=== PATIENT | female | born 1935 | race Caucasian/White ===

== ENCOUNTER 2022-10-07 15:12 | Emergency (ER) | payer OTHER, MEDICARE ==
[~2022-10-07] VITALS: Ht 165.1 cm; Wt 74.8 kg
[2022-10-07] MEDS ORDERED: ATEN25 PO (15:29)
[2022-10-07] MEDS ORDERED: AMLODIPINE BESY10 MG PO (15:29)
[2022-10-07] MEDS ORDERED: CATAPRES0.1 MG PO (15:30)
[2022-10-07] MEDS ORDERED: DONEPEZIL HCL10 MG PO (15:30)
[2022-10-07] MEDS ORDERED: LATANOPROST2.5 M3 (15:31)
[2022-10-07] MEDS ORDERED: LISI20 PO (15:31)
[2022-10-07] MEDS ORDERED: SERT50 PO (15:32)
[2022-10-07] MEDS ORDERED: LOPE2C PO (15:32)
[2022-10-07] MEDS ORDERED: HYDR1TAB94 PO (18:46)
== END 2022-10-07 19:05 | disposition home or self-care (01) ==
LOC: ER 15:12
DX: S00.81XA Abrasion of other part of head, initial encounter (principal); M54.2 Cervicalgia; M25.512 Pain in left shoulder; M79.642 Pain in left hand; M79.605 Pain in left leg; W01.0XXA Fall on same level from slipping, tripping and stumbling without subsequent striking against object, initial encounter; Z79.899 Other long term (current) drug therapy; Z23 Encounter for immunization
CPT/HCPCS: 70450; 71046; 72125; 90714; A9270

== ENCOUNTER 2022-10-23 22:35 | Emergency (ER) | payer MEDICARE, OTHER ==
[~2022-10-23] VITALS: Ht 167.6 cm; Wt 81.7 kg
[~2022-10-23 22:35] MED LIST: AMLODIPINE BESY10 MG PO; AMOCLA875 PO; ATEN25 PO; AZIT250 PO; CATAPRES0.1 MG PO; DONEPEZIL HCL10 MG PO; HYDR1TAB94 PO; LATANOPROST2.5 M3; LISI20 PO; LOPE2C PO; SERT50 PO
[2022-10-24 06:04] LABS: Albumin, Blood 3.2 g/dL (3.4-5.0); Albumin/Globulin Ratio 0.8 (0.8-1.8); Bilirubin, Total 0.5 mg/dL (0.1-1.0); Bun/Creatinine Ratio 27.4 (12.0-20.0); Calcium, Blood 9.3 mg/dL (8.5-10.1); Creatine Kinase MB 1.4 ng/mL (0.0-3.6); Creatinine, Blood 1.06 mg/dL (0.40-1.00); Globulin, Blood 4.2 g/dL (2.2-4.0); Potassium, Blood 4.5 mmol/L (3.5-5.5); Total Protein, Blood 7.4 g/dL (6.4-8.2)
[2022-10-24 06:05] LABS: Creatine Kinase MB Index 2.5 (0.0-4.0)
[2022-10-24 07:39] LABS: BASOPHILS ABSOLUTE AUTO 0.07 K/mm3 (0.00-0.23); BASOPHILS PERCENT AUTO 1 % (0-2); EOSINOPHILS ABSOLUTE AUTO 0.18 K/mm3 (0.00-0.68); EOSINOPHILS PERCENT AUTO 2 % (0-6); Hematocrit 41.9 % (33.0-51.0); Hemoglobin 13.8 g/dL (11.5-16.0); IMMATURE GRAN ABSOLUTE AUTO 0.02 K/mm3 (0.00-0.10); IMMATURE GRAN PERCENT AUTO 0 % (0-1); LYMPHOCYTES ABSOLUTE AUTO 1.68 K/mm3 (0.84-5.20); LYMPHOCYTES PERCENT AUTO 21 % (21-46); MONOCYTES ABSOLUTE AUTO 1.05 K/mm3 (0.16-1.47); MONOCYTES PERCENT AUTO 13 % (4-13); Mean Corpuscular HGB 27.9 pg (26.0-34.0); Mean Corpuscular HGB Conc 32.9 g/dL (31.5-36.5); Mean Corpuscular Volume 85 fL (80-100); NEUTROPHILS ABSOLUTE AUTO 5.02 K/mm3 (1.96-9.15); NEUTROPHILS PERCENT AUTO 63 % (41-73); Platelet Count 272 K/mm3 (150-400); RDW Coefficient Variation 14.8 % (11.7-14.2); RDW Standard Deviation 45.7 fL (35.1-46.3); Red Blood Cell Count 4.94 M/mm3 (3.80-5.20); White Blood Cell Count 8.02 K/mm3 (4.00-11.30)
[2022-10-24 07:40] LABS: Mean Platelet Volume 9.8 fL (9.1-12.4)
== END 2022-10-24 05:11 | disposition home or self-care (01) ==
LOC: ER 22:35
PROVIDERS: Student in an Organized Health Care Education/Training Program
DX: S09.90XA Unspecified injury of head, initial encounter (principal); M25.511 Pain in right shoulder; M25.551 Pain in right hip; M54.2 Cervicalgia; I10 Essential (primary) hypertension; Z79.899 Other long term (current) drug therapy; W01.0XXA Fall on same level from slipping, tripping and stumbling without subsequent striking against object, initial encounter
CPT/HCPCS: 70450; 72125; 72192; 73030; 73502; 73562-RT; 80053; 82550; 82553; 85025; A9270

== ENCOUNTER 2022-10-29 08:54 | Emergency (ER) | payer MEDICARE, OTHER ==
[~2022-10-29] VITALS: Ht 167.6 cm; Wt 90.7 kg
[2022-10-29 09:57] LABS: Bun/Creatinine Ratio 27.1 (12.0-20.0); Calcium, Blood 9.1 mg/dL (8.5-10.1); Creatinine, Blood 1.07 mg/dL (0.40-1.00); Potassium, Blood 4.1 mmol/L (3.5-5.5)
[2022-10-29 10:43] LABS: BASOPHILS ABSOLUTE AUTO 0.05 K/mm3 (0.00-0.23); BASOPHILS PERCENT AUTO 1 % (0-2); EOSINOPHILS ABSOLUTE AUTO 0.07 K/mm3 (0.00-0.68); EOSINOPHILS PERCENT AUTO 1 % (0-6); Hematocrit 35.7 % (33.0-51.0); Hemoglobin 11.5 g/dL (11.5-16.0); IMMATURE GRAN ABSOLUTE AUTO 0.01 K/mm3 (0.00-0.10); IMMATURE GRAN PERCENT AUTO 0 % (0-1); LYMPHOCYTES ABSOLUTE AUTO 1.04 K/mm3 (0.84-5.20); LYMPHOCYTES PERCENT AUTO 18 % (21-46); MONOCYTES ABSOLUTE AUTO 0.73 K/mm3 (0.16-1.47); MONOCYTES PERCENT AUTO 13 % (4-13); Mean Corpuscular HGB 28.1 pg (26.0-34.0); Mean Corpuscular HGB Conc 32.2 g/dL (31.5-36.5); Mean Corpuscular Volume 87 fL (80-100); NEUTROPHILS ABSOLUTE AUTO 3.77 K/mm3 (1.96-9.15); NEUTROPHILS PERCENT AUTO 67 % (41-73); Platelet Count 250 K/mm3 (150-400); RDW Coefficient Variation 14.8 % (11.7-14.2); RDW Standard Deviation 47.6 fL (35.1-46.3); Red Blood Cell Count 4.09 M/mm3 (3.80-5.20); White Blood Cell Count 5.67 K/mm3 (4.00-11.30)
[2022-10-29] MEDS ORDERED: ACET325 PO (10:46)
== END 2022-10-29 12:19 | disposition home or self-care (01) ==
LOC: ER 08:54
PROVIDERS: Student in an Organized Health Care Education/Training Program
DX: S22.41XA Multiple fractures of ribs, right side, initial encounter for closed fracture (principal); S40.021A Contusion of right upper arm, initial encounter; S70.01XA Contusion of right hip, initial encounter; S70.11XA Contusion of right thigh, initial encounter; S16.1XXA Strain of muscle, fascia and tendon at neck level, initial encounter; R51.9 Headache, unspecified; I10 Essential (primary) hypertension; E11.40 Type 2 diabetes mellitus with diabetic neuropathy, unspecified; W06.XXXA Fall from bed, initial encounter; Z79.899 Other long term (current) drug therapy
CPT/HCPCS: 36415; 70450; 71260; 72125; 73060; 74177; 80048; 85025; A9270; J1885; Q9967

== ENCOUNTER 2022-12-18 20:33 | Emergency (ER) | payer MEDICARE, OTHER ==
[~2022-12-18] VITALS: Ht 167.6 cm; Wt 72.6 kg
[~2022-12-18 20:33] MED LIST changes: +ACET325 PO
[2022-12-18] MEDS ORDERED: CYCL10 PO (23:16)
== END 2022-12-19 00:26 | disposition home or self-care (01) ==
LOC: ER 20:33
DX: M54.2 Cervicalgia (principal); R51.9 Headache, unspecified; M25.521 Pain in right elbow; M25.562 Pain in left knee; M25.561 Pain in right knee; I10 Essential (primary) hypertension; F03.90 Unspecified dementia, unspecified severity, without behavioral disturbance, psychotic disturbance, mood disturbance, and anxiety; W01.190A Fall on same level from slipping, tripping and stumbling with subsequent striking against furniture, initial encounter; Z79.899 Other long term (current) drug therapy
CPT/HCPCS: 70450; 72125; 73070; 73560-LT; 73560-RT; 93005; 93010; 96372; 99285-25; A9270; J1885

== ENCOUNTER 2022-12-24 18:57 | Emergency (ER) | payer OTHER, MEDICARE ==
[~2022-12-24] VITALS: Ht 165.1 cm; Wt 72.6 kg
[~2022-12-24 18:57] MED LIST changes: +CYCL10 PO
[2022-12-24 20:41] LABS: BASOPHILS ABSOLUTE AUTO 0.04 K/mm3 (0.00-0.23); BASOPHILS PERCENT AUTO 1 % (0-2); EOSINOPHILS ABSOLUTE AUTO 0.03 K/mm3 (0.00-0.68); EOSINOPHILS PERCENT AUTO 0 % (0-6); Hematocrit 41.7 % (33.0-51.0); Hemoglobin 13.5 g/dL (11.5-16.0); IMMATURE GRAN ABSOLUTE AUTO 0.03 K/mm3 (0.00-0.10); IMMATURE GRAN PERCENT AUTO 0 % (0-1); LYMPHOCYTES ABSOLUTE AUTO 0.83 K/mm3 (0.84-5.20); LYMPHOCYTES PERCENT AUTO 10 % (21-46); MONOCYTES ABSOLUTE AUTO 0.96 K/mm3 (0.16-1.47); MONOCYTES PERCENT AUTO 11 % (4-13); Mean Corpuscular HGB 27.5 pg (26.0-34.0); Mean Corpuscular HGB Conc 32.4 g/dL (31.5-36.5); Mean Corpuscular Volume 85 fL (80-100); Mean Platelet Volume 10.4 fL (9.1-12.4); NEUTROPHILS ABSOLUTE AUTO 6.72 K/mm3 (1.96-9.15); NEUTROPHILS PERCENT AUTO 78 % (41-73); Platelet Count 255 K/mm3 (150-400); RDW Coefficient Variation 15.1 % (11.7-14.2); RDW Standard Deviation 46.7 fL (35.1-46.3); Red Blood Cell Count 4.91 M/mm3 (3.80-5.20); White Blood Cell Count 8.61 K/mm3 (4.00-11.30)
[2022-12-24 21:33] LABS: Source, Urine Clean Catch
[2022-12-24 21:53] LABS: Albumin, Blood 3.2 g/dL (3.4-5.0); Albumin/Globulin Ratio 0.9 (0.8-1.8); Bilirubin, Total 0.7 mg/dL (0.1-1.0); Bun/Creatinine Ratio 25.8 (12.0-20.0); Calcium, Blood 8.8 mg/dL (8.5-10.1); Creatinine, Blood 0.93 mg/dL (0.40-1.00); Globulin, Blood 3.4 g/dL (2.2-4.0); Potassium, Blood 3.8 mmol/L (3.5-5.5); Total Protein, Blood 6.6 g/dL (6.4-8.2)
[2022-12-24 22:02] LABS: Appearance, Urine Clear (Clear); Bilirubin, Urine Neg (Neg); Blood, Urine Neg (Neg); Color, Urine Yellow (P-Yellow); Glucose Qualitative, Urine Neg (Neg); Ketones, Urine 2+ (Neg); Leukocyte Esterase, Urine Neg (Neg); Nitrite, Urine Neg (Neg); Protein, Urine 3+ (Neg); Urobilinogen, Urine NORM (Normal)
[2022-12-24 22:23] LABS: Bacteria Few /hpf; Granular Casts 0-2 /lpf (0); Hyaline Casts 0-2 /lpf (0-2); Red Blood Cells, Urine 0-2 /hpf (0-2); Squamous Epithelial Cells Few /hpf (Few); White Blood Cells, Urine 0-2 /hpf (0-5)
== END 2022-12-24 22:45 | disposition home or self-care (01) ==
LOC: ER 18:57
PROVIDERS: Emergency Medicine
DX: S51.012A Laceration without foreign body of left elbow, initial encounter (principal); T14.8XXA Other injury of unspecified body region, initial encounter; W01.190A Fall on same level from slipping, tripping and stumbling with subsequent striking against furniture, initial encounter; E86.0 Dehydration; I10 Essential (primary) hypertension; Z79.899 Other long term (current) drug therapy
CPT/HCPCS: 70450; 72125; 72170; 73080; 80053; 81001; 85025; A9270; J1885; J7030

== ENCOUNTER 2022-12-26 00:30 | Emergency (ER) | payer MEDICARE, OTHER ==
[~2022-12-26] VITALS: Ht 167.6 cm; Wt 63.5 kg
[2022-12-26] MEDS ORDERED: HYDROCODONE-AC1 EA10 PO (00:54)
[2022-12-26 02:17] LABS: BASOPHILS ABSOLUTE AUTO 0.05 K/mm3 (0.00-0.23); BASOPHILS PERCENT AUTO 1 % (0-2); EOSINOPHILS ABSOLUTE AUTO 0.09 K/mm3 (0.00-0.68); EOSINOPHILS PERCENT AUTO 1 % (0-6); Hematocrit 38.5 % (33.0-51.0); Hemoglobin 12.5 g/dL (11.5-16.0); IMMATURE GRAN ABSOLUTE AUTO 0.03 K/mm3 (0.00-0.10); IMMATURE GRAN PERCENT AUTO 0 % (0-1); LYMPHOCYTES PERCENT AUTO 10 % (21-46); MONOCYTES ABSOLUTE AUTO 1.04 K/mm3 (0.16-1.47); MONOCYTES PERCENT AUTO 13 % (4-13); Mean Corpuscular HGB 27.8 pg (26.0-34.0); Mean Corpuscular HGB Conc 32.5 g/dL (31.5-36.5); Mean Corpuscular Volume 86 fL (80-100); Mean Platelet Volume 9.5 fL (9.1-12.4); NEUTROPHILS ABSOLUTE AUTO 6.04 K/mm3 (1.96-9.15); NEUTROPHILS PERCENT AUTO 75 % (41-73); Platelet Count 242 K/mm3 (150-400); RDW Standard Deviation 47.1 fL (35.1-46.3); White Blood Cell Count 8.05 K/mm3 (4.00-11.30)
[2022-12-26 02:45] LABS: Albumin, Blood 3.1 g/dL (3.4-5.0); Albumin/Globulin Ratio 0.8 (0.8-1.8); Bilirubin, Total 0.8 mg/dL (0.1-1.0); Bun/Creatinine Ratio 25.7 (12.0-20.0); Creatinine, Blood 1.01 mg/dL (0.40-1.00); Globulin, Blood 3.7 g/dL (2.2-4.0); Potassium, Blood 3.8 mmol/L (3.5-5.5); Thyroid Stimulating Hormone 8.26 uIU/mL (0.360-4.800); Total Protein, Blood 6.8 g/dL (6.4-8.2)
[2022-12-26 03:17] LABS: Source, Urine Straight Cath
[2022-12-26 03:32] LABS: Appearance, Urine Hazy (Clear); Bilirubin, Urine Neg (Neg); Blood, Urine Neg (Neg); Color, Urine Yellow (P-Yellow); Glucose Qualitative, Urine Neg (Neg); Ketones, Urine 2+ (Neg); Leukocyte Esterase, Urine Neg (Neg); Nitrite, Urine Neg (Neg); Protein, Urine 3+ (Neg); Urobilinogen, Urine NORM (Normal)
[2022-12-26 03:55] LABS: Amorphous Mod (0-Heavy); Bacteria Few /hpf; Hyaline Casts 0-2 /lpf (0-2); Mucus Light (0-Heavy); Red Blood Cells, Urine 0-2 /hpf (0-2); Squamous Epithelial Cells Rare /hpf (Few); White Blood Cells, Urine 0-2 /hpf (0-5)
[2022-12-26 06:22] LABS: Free Thyroxine 1.14 ng/dL (0.70-1.60)
== END 2022-12-26 07:45 | disposition home or self-care (01) ==
LOC: ER 00:30
PROVIDERS: Student in an Organized Health Care Education/Training Program
DX: M79.601 Pain in right arm (principal); R41.0 Disorientation, unspecified; I10 Essential (primary) hypertension; W19.XXXA Unspecified fall, initial encounter; Z91.011 Allergy to milk products; Z79.899 Other long term (current) drug therapy
CPT/HCPCS: 36415; 70450; 71045; 72125; 72170; 73060; 80053; 81001; 83735; 84439; 84443; 85025; 99285-25; A9270; P9612

== ENCOUNTER → 2023-02-26 | Outpatient (CLI) | payer MEDICARE, OTHER ==
[~2023-02-26] MED LIST changes: +HYDROCODONE-AC1 EA10 PO
[2023-02-27 10:00] LABS: Source, Urine Voided
[2023-02-27 10:56] LABS: Appearance, Urine Clear (Clear); Bilirubin, Urine Neg (Neg); Blood, Urine 1+ (Neg); Color, Urine Yellow (P-Yellow); Glucose Qualitative, Urine Neg (Neg); Ketones, Urine Neg (Neg); Leukocyte Esterase, Urine 3+ (Neg); Nitrite, Urine Neg (Neg); Protein, Urine 3+ (Neg); Urobilinogen, Urine NORM (Normal)
[2023-02-27 11:12] LABS: Bacteria Mod /hpf; Squamous Epithelial Cells Few /hpf (Few); White Blood Cells, Urine TNTC /hpf (0-5)
== END | disposition home or self-care (01) ==
LOC: LAB SHORT 10:15
PROVIDERS: Physician Assistant
DX: N39.0 Urinary tract infection, site not specified (principal)
CPT/HCPCS: 81001; 87086

== ENCOUNTER 2023-03-09 03:10 | Emergency (ER) | payer MEDICARE, OTHER ==
[~2023-03-09] VITALS: Ht 167.6 cm; Wt 61.2 kg
[2023-03-09 04:03] LABS: BASOPHILS ABSOLUTE AUTO 0.05 K/mm3 (0.00-0.23); BASOPHILS PERCENT AUTO 1 % (0-2); EOSINOPHILS ABSOLUTE AUTO 0.09 K/mm3 (0.00-0.68); EOSINOPHILS PERCENT AUTO 1 % (0-6); Hematocrit 43.6 % (33.0-51.0); Hemoglobin 14.2 g/dL (11.5-16.0); IMMATURE GRAN ABSOLUTE AUTO 0.03 K/mm3 (0.00-0.10); IMMATURE GRAN PERCENT AUTO 0 % (0-1); LYMPHOCYTES ABSOLUTE AUTO 1.01 K/mm3 (0.84-5.20); LYMPHOCYTES PERCENT AUTO 11 % (21-46); MONOCYTES ABSOLUTE AUTO 0.89 K/mm3 (0.16-1.47); MONOCYTES PERCENT AUTO 10 % (4-13); Mean Corpuscular HGB 27.6 pg (26.0-34.0); Mean Corpuscular HGB Conc 32.6 g/dL (31.5-36.5); Mean Corpuscular Volume 85 fL (80-100); Mean Platelet Volume 9.6 fL (9.1-12.4); NEUTROPHILS ABSOLUTE AUTO 7.25 K/mm3 (1.96-9.15); NEUTROPHILS PERCENT AUTO 78 % (41-73); Platelet Count 273 K/mm3 (150-400); RDW Coefficient Variation 14.5 % (11.7-14.2); RDW Standard Deviation 44.4 fL (35.1-46.3); Red Blood Cell Count 5.14 M/mm3 (3.80-5.20); White Blood Cell Count 9.32 K/mm3 (4.00-11.30)
[2023-03-09 04:14] LABS: Albumin, Blood 3.4 g/dL (3.4-5.0); Albumin/Globulin Ratio 0.8 (0.8-1.8); Bilirubin, Total 0.4 mg/dL (0.1-1.0); Bun/Creatinine Ratio 31.1 (12.0-20.0); Calcium, Blood 9.4 mg/dL (8.5-10.1); Creatinine, Blood 1.03 mg/dL (0.40-1.00); Globulin, Blood 4.5 g/dL (2.2-4.0); Total Protein, Blood 7.9 g/dL (6.4-8.2)
[2023-03-09 04:46] LABS: Source, Urine Straight Cath
[2023-03-09 04:49] LABS: Bilirubin, Urine Neg (Neg); Blood, Urine Neg (Neg); Glucose Qualitative, Urine Neg (Neg); Ketones, Urine Neg (Neg); Leukocyte Esterase, Urine Neg (Neg); Nitrite, Urine Neg (Neg); Protein, Urine 2+ (Neg); Specific Gravity, Urine 1.015 (1.003-1.022); Urobilinogen, Urine NORM (Normal)
[2023-03-09 05:04] LABS: Color, Urine Yellow (P-Yellow)
[2023-03-09 05:05] LABS: Amorphous Heavy (0-Heavy); Appearance, Urine Hazy (Clear); Bacteria Rare /hpf; Red Blood Cells, Urine Not Seen /hpf (0-2); Squamous Epithelial Cells Rare /hpf (Few); White Blood Cells, Urine Not Seen /hpf (0-5)
[2023-03-09 08:00] VITALS: BP 146/88
== END 2023-03-09 08:27 | disposition home or self-care (01) ==
LOC: ER 03:10
PROVIDERS: Student in an Organized Health Care Education/Training Program
DX: Z04.3 Encounter for examination and observation following other accident (principal); Z88.8 Allergy status to other drugs, medicaments and biological substances; Z79.899 Other long term (current) drug therapy; I10 Essential (primary) hypertension; E03.9 Hypothyroidism, unspecified; E11.9 Type 2 diabetes mellitus without complications; E78.5 Hyperlipidemia, unspecified
CPT/HCPCS: 36415; 51701; 80053; 81001; 85025; 93005; 93010; 99283-25

== ENCOUNTER → 2023-04-03 | Outpatient (CLI) | payer MEDICARE, OTHER ==
[~2023-04-03] MED LIST changes: +BISA10S; +DULCOLAX400 MG/5 M PO; +MIRALAX17 GM; +PSYSENPA; +QUET25; +SENN187; +TIMDOROPSO
[2023-04-03 13:39] LABS: Bilirubin, Urine Neg (Neg); Blood, Urine 2+ (Neg); Glucose Qualitative, Urine Neg (Neg); Ketones, Urine Neg (Neg); Leukocyte Esterase, Urine 2+ (Neg); Nitrite, Urine Neg (Neg); Protein, Urine 3+ (Neg); Urobilinogen, Urine NORM (Normal)
[2023-04-03 13:50] LABS: Appearance, Urine Clear (Clear); Color, Urine Yellow (P-Yellow)
[2023-04-03 13:51] LABS: Bacteria Many /hpf; Mucus Mod (0-Heavy); Squamous Epithelial Cells Few /hpf (Few)
== END ==
LOC: LAB 11:00 → LAB SHORT 11:00
PROVIDERS: Physician Assistant
DX: N39.0 Urinary tract infection, site not specified (principal)
CPT/HCPCS: 81001; 87077; 87086; 87186

== ENCOUNTER 2023-06-14 12:03 | Emergency (ER) | payer MEDICARE, OTHER ==
[~2023-06-14] VITALS: Ht 167.6 cm; Wt 65.8 kg
[2023-06-14 12:59] LABS: BASOPHILS ABSOLUTE AUTO 0.03 K/mm3 (0.00-0.23); BASOPHILS PERCENT AUTO 1 % (0-2); EOSINOPHILS ABSOLUTE AUTO 0.16 K/mm3 (0.00-0.68); EOSINOPHILS PERCENT AUTO 3 % (0-6); Hematocrit 42.4 % (33.0-51.0); Hemoglobin 14.1 g/dL (11.5-16.0); IMMATURE GRAN ABSOLUTE AUTO 0.01 K/mm3 (0.00-0.10); IMMATURE GRAN PERCENT AUTO 0 % (0-1); LYMPHOCYTES ABSOLUTE AUTO 1.26 K/mm3 (0.84-5.20); LYMPHOCYTES PERCENT AUTO 21 % (21-46); MONOCYTES ABSOLUTE AUTO 0.78 K/mm3 (0.16-1.47); MONOCYTES PERCENT AUTO 13 % (4-13); Mean Corpuscular HGB 28.5 pg (26.0-34.0); Mean Corpuscular HGB Conc 33.3 g/dL (31.5-36.5); Mean Corpuscular Volume 86 fL (80-100); Mean Platelet Volume 9.8 fL (9.1-12.4); NEUTROPHILS ABSOLUTE AUTO 3.76 K/mm3 (1.96-9.15); NEUTROPHILS PERCENT AUTO 63 % (41-73); Platelet Count 242 K/mm3 (150-400); RDW Coefficient Variation 14.6 % (11.7-14.2); RDW Standard Deviation 46.4 fL (35.1-46.3); Red Blood Cell Count 4.94 M/mm3 (3.80-5.20)
[2023-06-14 13:17] LABS: Albumin, Blood 3.4 g/dL (3.4-5.0); Albumin/Globulin Ratio 0.9 (0.8-1.8); Bilirubin, Total 0.4 mg/dL (0.1-1.0); Bun/Creatinine Ratio 23.3 (12.0-20.0); Calcium, Blood 8.7 mg/dL (8.5-10.1); Creatinine, Blood 1.16 mg/dL (0.40-1.00); Globulin, Blood 3.9 g/dL (2.2-4.0); Total Protein, Blood 7.3 g/dL (6.4-8.2)
[2023-06-14 14:12] VITALS: BP 154/58
== END 2023-06-14 14:12 | disposition home or self-care (01) ==
LOC: ER 12:03
PROVIDERS: Family Medicine
DX: M71.21 Synovial cyst of popliteal space [Baker], right knee (principal); R60.0 Localized edema; Z88.8 Allergy status to other drugs, medicaments and biological substances; Z79.1 Long term (current) use of non-steroidal anti-inflammatories (NSAID); Z79.818 Long term (current) use of other agents affecting estrogen receptors and estrogen levels; Z79.899 Other long term (current) drug therapy; E11.9 Type 2 diabetes mellitus without complications; E78.5 Hyperlipidemia, unspecified; I10 Essential (primary) hypertension; E03.9 Hypothyroidism, unspecified
CPT/HCPCS: 80053; 85025; 93971; 99284-25

== ENCOUNTER 2023-06-15 14:53 | Emergency (ER) | payer MEDICARE, OTHER ==
[~2023-06-15] VITALS: Ht 167.6 cm; Wt 65.8 kg
[2023-06-15 14:53] VITALS: BP 144/67
== END 2023-06-15 17:12 | disposition home or self-care (01) ==
LOC: ER 14:53
DX: S09.90XA Unspecified injury of head, initial encounter (principal); S51.012A Laceration without foreign body of left elbow, initial encounter; W18.30XA Fall on same level, unspecified, initial encounter; Y92.002 Bathroom of unspecified non-institutional (private) residence as the place of occurrence of the external cause; Z88.8 Allergy status to other drugs, medicaments and biological substances; Z79.899 Other long term (current) drug therapy; I10 Essential (primary) hypertension; E11.9 Type 2 diabetes mellitus without complications; E03.9 Hypothyroidism, unspecified; E78.5 Hyperlipidemia, unspecified
CPT/HCPCS: 70450; 99283-25

== ENCOUNTER 2023-07-04 11:49 | Emergency (ER) | payer OTHER, MEDICARE ==
[~2023-07-04] VITALS: Ht 167.6 cm; Wt 65.8 kg
[~2023-07-04 11:49] MED LIST changes: -QUET25; +QUET25 PO
[2023-07-04] MEDS ORDERED: ACET500 PO (14:38)
[2023-07-04 15:15] VITALS: BP 171/91
== END 2023-07-04 15:30 ==
LOC: ER 11:49
DX: M25.511 Pain in right shoulder (principal); W01.0XXA Fall on same level from slipping, tripping and stumbling without subsequent striking against object, initial encounter; Z88.8 Allergy status to other drugs, medicaments and biological substances; Z79.899 Other long term (current) drug therapy; I10 Essential (primary) hypertension; E78.5 Hyperlipidemia, unspecified; E11.9 Type 2 diabetes mellitus without complications; E03.9 Hypothyroidism, unspecified
CPT/HCPCS: 70450; 73030; 73502; 93005; 93010; A9270

== ENCOUNTER 2023-07-04 23:29 | Emergency (ER) | payer MEDICARE, OTHER ==
[~2023-07-04] VITALS: Ht 167.6 cm; Wt 77.1 kg
[~2023-07-04 23:29] MED LIST changes: +ACET500 PO
[2023-07-04 23:36] VITALS: BP 166/70
== END 2023-07-05 02:30 | disposition home or self-care (01) ==
LOC: ER 23:29
DX: S16.1XXA Strain of muscle, fascia and tendon at neck level, initial encounter (principal); S00.83XA Contusion of other part of head, initial encounter; S70.01XA Contusion of right hip, initial encounter; S80.01XA Contusion of right knee, initial encounter; S80.11XA Contusion of right lower leg, initial encounter; I10 Essential (primary) hypertension; G30.9 Alzheimer's disease, unspecified; F02.80 Dementia in other diseases classified elsewhere, unspecified severity, without behavioral disturbance, psychotic disturbance, mood disturbance, and anxiety; E11.9 Type 2 diabetes mellitus without complications; E03.9 Hypothyroidism, unspecified; E78.5 Hyperlipidemia, unspecified; Z91.011 Allergy to milk products; Z79.899 Other long term (current) drug therapy; W18.30XA Fall on same level, unspecified, initial encounter
CPT/HCPCS: 70450; 72125; 73502; 73562-RT; 99285-25

== ENCOUNTER → 2023-07-08 | Outpatient (CLI) | payer MEDICARE, OTHER ==
[2023-07-08 17:35] LABS: Appearance, Urine Hazy (Clear); Bilirubin, Urine Neg (Neg); Blood, Urine 3+ (Neg); Color, Urine Yellow (P-Yellow); Glucose Qualitative, Urine Neg (Neg); Ketones, Urine Neg (Neg); Leukocyte Esterase, Urine 2+ (Neg); Nitrite, Urine Neg (Neg); Protein, Urine 3+ (Neg); Urobilinogen, Urine NORM (Normal)
[2023-07-08 18:00] LABS: Bacteria Mod /hpf; Squamous Epithelial Cells Few /hpf (Few)
== END ==
LOC: LAB SHORT 15:40 → LAB 15:40
PROVIDERS: Physician Assistant
DX: N39.0 Urinary tract infection, site not specified (principal)
CPT/HCPCS: 81001; 87086

== ENCOUNTER → 2023-10-07 | Outpatient (CLI) | payer MEDICARE, OTHER ==
[~2023-10-07] MED LIST changes: +CEPH500 PO
[2023-10-07 12:53] LABS: Bilirubin, Urine Neg (Neg); Blood, Urine 3+ (Neg); Glucose Qualitative, Urine Neg (Neg); Ketones, Urine Neg (Neg); Leukocyte Esterase, Urine 3+ (Neg); Nitrite, Urine Neg (Neg); Protein, Urine 3+ (Neg); Urobilinogen, Urine NORM (Normal)
[2023-10-07 13:22] LABS: Appearance, Urine Hazy (Clear); Bacteria Few /hpf; Color, Urine Yellow (P-Yellow); Squamous Epithelial Cells Few /hpf (Few)
== END ==
LOC: LAB SHORT 02:30 → LAB 02:30
PROVIDERS: Physician Assistant
DX: N39.0 Urinary tract infection, site not specified (principal)
CPT/HCPCS: 81001; 87077; 87086; 87186

== ENCOUNTER → 2023-12-09 | Outpatient (CLI) | payer MEDICARE, OTHER ==
[2023-12-09 17:59] LABS: Appearance, Urine Hazy (Clear); Bilirubin, Urine Neg (Neg); Blood, Urine Neg (Neg); Color, Urine Yellow (P-Yellow); Glucose Qualitative, Urine Neg (Neg); Ketones, Urine Neg (Neg); Leukocyte Esterase, Urine 2+ (Neg); Nitrite, Urine Neg (Neg); Protein, Urine 2+ (Neg); Specific Gravity, Urine 1.015 (1.003-1.022); Urobilinogen, Urine 1+ (Normal); pH, Urine 6.5 (5.0-8.0)
[2023-12-09 18:12] LABS: Bacteria Few /hpf; Red Blood Cells, Urine 0-2 /hpf (0-2); Squamous Epithelial Cells Few /hpf (Few); Transitional Epithelial Cells Rare /hpf (0-Rare)
== END ==
LOC: LAB SHORT 15:00 → LAB 15:00
PROVIDERS: Physician Assistant
DX: N39.0 Urinary tract infection, site not specified (principal)
CPT/HCPCS: 81001; 87077; 87086; 87186

== ENCOUNTER → 2024-01-08 | Outpatient (CLI) | payer MEDICARE, OTHER ==
[2024-01-08 17:37] LABS: Appearance, Urine Clear (Clear); Bilirubin, Urine Neg (Neg); Blood, Urine Neg (Neg); Color, Urine Yellow (P-Yellow); Glucose Qualitative, Urine Neg (Neg); Ketones, Urine Neg (Neg); Leukocyte Esterase, Urine 2+ (Neg); Nitrite, Urine Neg (Neg); Protein, Urine 2+ (Neg); Specific Gravity, Urine 1.015 (1.003-1.022); Urobilinogen, Urine NORM (Normal)
[2024-01-08 17:46] LABS: Bacteria Few /hpf; Red Blood Cells, Urine 0-2 /hpf (0-2); Squamous Epithelial Cells Few /hpf (Few); Transitional Epithelial Cells Few /hpf (0-Rare)
== END | disposition home or self-care (01) ==
LOC: LAB SHORT 15:10
PROVIDERS: Physician Assistant
DX: N39.0 Urinary tract infection, site not specified (principal)
CPT/HCPCS: 81001; 87086

== ENCOUNTER → 2024-02-19 | Outpatient (CLI) | payer MEDICARE, OTHER ==
[2024-02-20 17:37] LABS: Appearance, Urine Cloudy (Clear); Bilirubin, Urine Neg (Neg); Blood, Urine 1+ (Neg); Color, Urine Yellow (P-Yellow); Glucose Qualitative, Urine Neg (Neg); Ketones, Urine Neg (Neg); Leukocyte Esterase, Urine 3+ (Neg); Nitrite, Urine Neg (Neg); Protein, Urine 2+ (Neg); Urobilinogen, Urine NORM (Normal)
[2024-02-20 17:53] LABS: White Blood Cells, Urine TNTC /hpf (0-5)
[2024-02-20 17:54] LABS: Bacteria Many /hpf; Squamous Epithelial Cells Few /hpf (Few); Transitional Epithelial Cells Few /hpf (0-Rare)
== END ==
LOC: LAB 18:00 → LAB SHORT 18:00
PROVIDERS: Physician Assistant
DX: N39.0 Urinary tract infection, site not specified (principal)
CPT/HCPCS: 81001; 87077; 87086; 87186

== ENCOUNTER → 2024-03-11 | Outpatient (CLI) | payer MEDICARE, OTHER | END | disposition home or self-care (01) | LOC: LAB SHORT 18:18 → LAB 18:18 | DX: N39.0 Urinary tract infection, site not specified (principal) ==

== ENCOUNTER 2024-05-11 19:15 | Emergency (ER) | payer OTHER, MEDICARE ==
[~2024-05-11] VITALS: Ht 167.6 cm; Wt 74.8 kg
[2024-05-11 22:48] VITALS: BP 145/62
== END 2024-05-11 22:49 | disposition home or self-care (01) ==
LOC: ER 19:15
DX: S16.1XXA Strain of muscle, fascia and tendon at neck level, initial encounter (principal); S09.90XA Unspecified injury of head, initial encounter; W01.0XXA Fall on same level from slipping, tripping and stumbling without subsequent striking against object, initial encounter; I10 Essential (primary) hypertension; G30.9 Alzheimer's disease, unspecified; F02.80 Dementia in other diseases classified elsewhere, unspecified severity, without behavioral disturbance, psychotic disturbance, mood disturbance, and anxiety; E03.9 Hypothyroidism, unspecified; E11.9 Type 2 diabetes mellitus without complications; E78.5 Hyperlipidemia, unspecified; F32.9 Major depressive disorder, single episode, unspecified; Z91.011 Allergy to milk products; Z79.899 Other long term (current) drug therapy
CPT/HCPCS: 70450; 99284-25

== ENCOUNTER → 2024-06-01 | Outpatient (CLI) | payer MEDICARE, OTHER ==
[2024-06-02 16:18] LABS: Source, Urine Voided
[2024-06-02 17:01] LABS: Appearance, Urine Clear (Clear); Bilirubin, Urine Neg (Neg); Blood, Urine Neg (Neg); Color, Urine Yellow (P-Yellow); Glucose Qualitative, Urine Neg (Neg); Ketones, Urine Neg (Neg); Leukocyte Esterase, Urine 2+ (Neg); Nitrite, Urine Neg (Neg); Protein, Urine 2+ (Neg); Urobilinogen, Urine NORM (Normal)
[2024-06-02 17:17] LABS: Amorphous Light (0-Heavy); Bacteria Few /hpf; Hyaline Casts 0-2 /lpf (0-2); Red Blood Cells, Urine 0-2 /hpf (0-2); Squamous Epithelial Cells Few /hpf (Few)
== END ==
LOC: LAB 15:10 → LAB SHORT 15:10
PROVIDERS: Physician Assistant
DX: N39.0 Urinary tract infection, site not specified (principal)
CPT/HCPCS: 81001; 87086

== ENCOUNTER 2024-06-08 16:13 | Emergency (ER) | payer OTHER, MEDICARE ==
[~2024-06-08] VITALS: Ht 167.6 cm; Wt 72.6 kg
[2024-06-08] MEDS ORDERED: FentaNYL Citrate 50 MCG/ML 2 ML Injection IV PRN (17:45)
[2024-06-08 18:25] LABS: BASOPHILS ABSOLUTE AUTO 0.07 K/mm3 (0.00-0.23); BASOPHILS PERCENT AUTO 1 % (0-2); EOSINOPHILS ABSOLUTE AUTO 0.38 K/mm3 (0.00-0.68); EOSINOPHILS PERCENT AUTO 6 % (0-6); Hematocrit 44.1 % (33.0-51.0); Hemoglobin 14.6 g/dL (11.5-16.0); IMMATURE GRAN PERCENT AUTO 0 % (0-1); LYMPHOCYTES ABSOLUTE AUTO 1.46 K/mm3 (0.84-5.20); LYMPHOCYTES PERCENT AUTO 22 % (21-46); MONOCYTES PERCENT AUTO 14 % (4-13); Mean Corpuscular HGB 28.6 pg (26.0-34.0); Mean Corpuscular HGB Conc 33.1 g/dL (31.5-36.5); Mean Corpuscular Volume 87 fL (80-100); Mean Platelet Volume 9.4 fL (9.1-12.4); NEUTROPHILS ABSOLUTE AUTO 3.76 K/mm3 (1.96-9.15); NEUTROPHILS PERCENT AUTO 57 % (41-73); Platelet Count 221 K/mm3 (150-400); RDW Coefficient Variation 13.8 % (11.7-14.2); White Blood Cell Count 6.57 K/mm3 (4.00-11.30)
[2024-06-08 18:51] LABS: Albumin, Blood 3.4 g/dL (3.4-5.0); Albumin/Globulin Ratio 0.8 (0.8-1.8); Bilirubin, Total 0.5 mg/dL (0.1-1.0); Bun/Creatinine Ratio 22.2 (12.0-20.0); Creatinine, Blood 1.17 mg/dL (0.40-1.00); Globulin, Blood 4.2 g/dL (2.2-4.0); Potassium, Blood 4.3 mmol/L (3.5-5.5); Total Protein, Blood 7.6 g/dL (6.4-8.2)
[2024-06-08 23:03] VITALS: BP 209/77
== END 2024-06-08 23:00 | disposition home or self-care (01) ==
LOC: ER 16:13
PROVIDERS: Emergency Medicine
DX: S80.01XA Contusion of right knee, initial encounter (principal); S40.011A Contusion of right shoulder, initial encounter; M16.0 Bilateral primary osteoarthritis of hip; M17.11 Unilateral primary osteoarthritis, right knee; G30.9 Alzheimer's disease, unspecified; F02.80 Dementia in other diseases classified elsewhere, unspecified severity, without behavioral disturbance, psychotic disturbance, mood disturbance, and anxiety; E11.9 Type 2 diabetes mellitus without complications; W01.0XXA Fall on same level from slipping, tripping and stumbling without subsequent striking against object, initial encounter; Z91.011 Allergy to milk products; Z79.899 Other long term (current) drug therapy
CPT/HCPCS: 70450; 71045; 72125; 73060; 73502; 73560-RT; 80053; 85025; 96374; 99284-25; J3010

== ENCOUNTER 2024-07-20 10:46 | Emergency (ER) | payer MEDICARE, OTHER ==
[~2024-07-20] VITALS: Ht 167.6 cm; Wt 63.5 kg
[2024-07-20 16:33] VITALS: BP 181/83
[2024-07-26] MEDS ORDERED: CEPH500 PO (22:44)
== END 2024-07-20 16:35 | disposition home or self-care (01) ==
LOC: ER 10:46
DX: T14.8XXA Other injury of unspecified body region, initial encounter (principal); I10 Essential (primary) hypertension; E11.9 Type 2 diabetes mellitus without complications; E03.9 Hypothyroidism, unspecified; E78.5 Hyperlipidemia, unspecified; W18.30XA Fall on same level, unspecified, initial encounter; Z79.899 Other long term (current) drug therapy; Z91.040 Latex allergy status
CPT/HCPCS: 70450; 73060; 73552; 99284-25

== ENCOUNTER 2024-11-18 08:58 | Inpatient (IN) | payer MEDICARE, OTHER ==
[~2024-11-18] VITALS: Ht 152.4 cm; Wt 56.0 kg
[2024-11-18 09:57] LABS: BASOPHILS ABSOLUTE AUTO 0.05 K/mm3 (0.00-0.23); BASOPHILS PERCENT AUTO 1 % (0-2); EOSINOPHILS ABSOLUTE AUTO 0.16 K/mm3 (0.00-0.68); EOSINOPHILS PERCENT AUTO 3 % (0-6); Hematocrit 44.8 % (33.0-51.0); Hemoglobin 14.7 g/dL (11.5-16.0); IMMATURE GRAN ABSOLUTE AUTO 0.01 K/mm3 (0.00-0.10); IMMATURE GRAN PERCENT AUTO 0 % (0-1); LYMPHOCYTES ABSOLUTE AUTO 1.22 K/mm3 (0.84-5.20); LYMPHOCYTES PERCENT AUTO 19 % (21-46); MONOCYTES PERCENT AUTO 11 % (4-13); Mean Corpuscular HGB 29.5 pg (26.0-34.0); Mean Corpuscular HGB Conc 32.8 g/dL (31.5-36.5); Mean Corpuscular Volume 90 fL (80-100); Mean Platelet Volume 9.6 fL (9.1-12.4); NEUTROPHILS ABSOLUTE AUTO 4.38 K/mm3 (1.96-9.15); NEUTROPHILS PERCENT AUTO 67 % (41-73); Platelet Count 192 K/mm3 (150-400); RDW Coefficient Variation 14.5 % (11.7-14.2); RDW Standard Deviation 48.2 fL (35.1-46.3); Red Blood Cell Count 4.98 M/mm3 (3.80-5.20); White Blood Cell Count 6.52 K/mm3 (4.00-11.30)
[2024-11-18 10:11] LABS: International Normalized Ratio 0.98; Prothrombin Time Results 10.5 Sec (9.7-11.5)
[2024-11-18 10:19] LABS: Albumin, Blood 3.3 g/dL (3.4-5.0); Albumin/Globulin Ratio 0.8 (0.8-1.8); Bilirubin, Total 0.6 mg/dL (0.1-1.0); Bun/Creatinine Ratio 21.2 (12.0-20.0); Calcium, Blood 9.1 mg/dL (8.5-10.1); Creatinine, Blood 1.04 mg/dL (0.40-1.00); Potassium, Blood 3.6 mmol/L (3.5-5.5); Total Protein, Blood 7.3 g/dL (6.4-8.2)
[2024-11-18 10:36] LABS: Free Thyroxine 0.78 ng/dL (0.70-1.60); Thyroid Stimulating Hormone 6.6 uIU/mL (0.360-4.800)
[2024-11-18] MEDS ORDERED: Aspirin 300 MG Supp PR ONE (11:20)
[2024-11-18 11:53] LABS: CORONAVIRUS COVID-19 AG Negative (NEGATIVE); INFLUENZA A AG Negative (NEGATIVE); INFLUENZA B AG Negative (NEGATIVE)
[2024-11-18] MEDS ORDERED: Ondansetron 4 MG TAB PO PRN (13:10)
[2024-11-18] MEDS ORDERED: FLU VACC TS2024-25(6MOS UP)/PF 45 MCG/0.5 ML SYRINGE IM SCH (13:10)
[2024-11-18] MEDS ORDERED: HydrALAZINE HCl 20 MG / ML 1ML Vial IV PRN (13:15)
[2024-11-18 14:20] VITALS: BP 226/87; BP 231/82
[2024-11-18 15:15] VITALS: BP 205/67
[2024-11-18] MEDS ORDERED: FentaNYL Citrate 50 MCG/ML 2 ML Injection IV PRN (15:45)
[2024-11-18 20:17] VITALS: BP 190/74
--- NOTE | 2024-11-18 20:18 | NUR ---
ADMISSION NOTE/SHIFT SUMMARY PATIENT RESPONDING TO VERBAL STIMULI, MUMBLED INCOHERENT SPEECH. RIGHT SIDED FACIAL DROOP NOTED, BUT PATIENT WITH NO OVERT PHYSICAL DEFICITS TO EXTREMITIES. PATIENT IMPULSIVE AND ATTEMPTED TO GET OUT OF BED INDEPENDENTLY, BED ALARM IN PLACE. ADMISSION ASSESSMENT PARTIALLY COMPLETED PATIENT IS UNABLE TO ASNWER QUESTIONS, CHARGE NURSE STATED GAVE REPORT TO SLAG WORKER CHARGE TO [facility]X [facility], TO COMPLETE MED REC. BLOOD PRESSURES ELEVATED UPON ADMISSION, SBP >230. MD NOTIFIED AND HYDRALAZINE ADMINISTERED PER JAN. SBP REMIANS ABOVE 200 AFTER ADMINISTRATION. PATIENT INCONTINENT WITH HISTORY OF DEMENTIA WITH HALLUCINATIONS AT BASELINE. PATIETN WITH REGULAR DIET, MD NOTIFIED OF THIS RN CONCERNS WITH PO INTAKE DUE TO MENTATIONA AND EXPRESSIVE APHASIA. SPEECH THERAPY ORDERED, PATIENT NOT PROVIDED WITH PO INTAKE UPON ADMISSION. NO OTHER CONCERNS AT THIS TIME. REPORT PROVIDED TO JACKIE BARBOZA RN.
[2024-11-19] MEDS ORDERED: ACETAZOLAMIDE IV (00:28)
[2024-11-19] MEDS ORDERED: NYSTOP15 GM TOP (00:39)
[2024-11-19] MEDS ORDERED: DESITIN DAILY136 GM TOP (00:41)
[2024-11-19] MEDS ORDERED: Alphagan P5 ML BOTHEYES (00:44)
[2024-11-19 05:14] VITALS: BP 211/82
[2024-11-19 05:29] LABS: BASOPHILS ABSOLUTE AUTO 0.04 K/mm3 (0.00-0.23); BASOPHILS PERCENT AUTO 0 % (0-2); EOSINOPHILS PERCENT AUTO 0 % (0-6); Hematocrit 48.6 % (33.0-51.0); Hemoglobin 16.2 g/dL (11.5-16.0); IMMATURE GRAN ABSOLUTE AUTO 0.04 K/mm3 (0.00-0.10); IMMATURE GRAN PERCENT AUTO 0 % (0-1); LYMPHOCYTES ABSOLUTE AUTO 1.31 K/mm3 (0.84-5.20); LYMPHOCYTES PERCENT AUTO 11 % (21-46); MONOCYTES ABSOLUTE AUTO 0.67 K/mm3 (0.16-1.47); MONOCYTES PERCENT AUTO 6 % (4-13); Mean Corpuscular HGB 29.9 pg (26.0-34.0); Mean Corpuscular HGB Conc 33.3 g/dL (31.5-36.5); Mean Corpuscular Volume 90 fL (80-100); Mean Platelet Volume 9.6 fL (9.1-12.4); NEUTROPHILS ABSOLUTE AUTO 9.39 K/mm3 (1.96-9.15); NEUTROPHILS PERCENT AUTO 82 % (41-73); Platelet Count 278 K/mm3 (150-400); RDW Coefficient Variation 14.6 % (11.7-14.2); RDW Standard Deviation 47.5 fL (35.1-46.3); Red Blood Cell Count 5.42 M/mm3 (3.80-5.20); White Blood Cell Count 11.45 K/mm3 (4.00-11.30)
[2024-11-19 05:57] LABS: Albumin, Blood 3.8 g/dL (3.4-5.0); Bilirubin, Total 0.7 mg/dL (0.1-1.0); Bun/Creatinine Ratio 21.2 (12.0-20.0); Calcium, Blood 9.8 mg/dL (8.5-10.1); Creatinine, Blood 1.04 mg/dL (0.40-1.00); Magnesium, Blood 2.4 mg/dL (1.6-2.4); Potassium, Blood 3.2 mmol/L (3.5-5.5); Total Protein, Blood 7.8 g/dL (6.4-8.2)
[2024-11-19 06:04] VITALS: BP 185/69
--- NOTE | 2024-11-19 06:12 | NUR ---
SHIFT SUMMARY - NO ACUTE CHANGES THROUGHOUT THE SHIFT. PT HAS BEEN IMPULSIVE AT TIMES - ATTEMPTING TO GET OUT OF BED - BED ALARM ON FOR PT SAFETY. PT HAS RIGHT SIDED FACIAL DROOP, AND RIGHT SIDE IS WEAKER THAN HER LEFT SIDE. PT MEDICATED X1 THIS AM FOR PAIN - PT WAS ABLE TO STATE "YES" AND WHEN ASKED WHERE HER PAIN IS SHE STATED "ALL OVER." CALL LIGHT WITHIN REACH. BED IN LOW POSITION. PT IS CURRENTLY SLEEPING - RESPIRATIONS EVEN AND UNLABORED.
[2024-11-19 07:46] VITALS: BP 164/99
[2024-11-19] MEDS ORDERED: Enoxaparin 30 MG/0.3 ML SYR SC SCH (09:00)
--- NOTE | 2024-11-19 13:51 | NUR ---
MD CALL DR ALVAREZ CALLED MS ALLEN LOOKS DISTRESSED. VERBAL MOANING. TRYING TO GET OUT OF BED, REACHING HER HANDS/ARMS OUT, FLUSHED FACE. EARLIER TODAY SHE LOOKED DISTRESSED AND 25MCG IV FENTANYL HELPED HER TO SETTLE. TELEPHONE ORDER FOR FENTANYL 25MCG IV Q2HRS PRN READ BACK DONE AND ORDERS ENTERED INTO [employer]. ALSO POOR PO INTAKE TODAY, 100CC PO SO FAR. DR ALVAREZ PUTTING IN ORDER FOR D5 75CC/HR.
[2024-11-19] MEDS ORDERED: FentaNYL Citrate 50 MCG/ML 2 ML Injection IV PRN (13:55)
[2024-11-19] MEDS ORDERED: D5W-1/2NS KCl 10mEq 1,000 ML IV SCH (14:00)
[2024-11-19] MEDS ORDERED: Potassium Chloride 20 MEQ TabCR PO SCH (15:00)
[2024-11-19 15:05] VITALS: BP 186/81
[2024-11-19] MEDS ORDERED: Loperamide HCl 2 MG Cap PO PRN (15:05)
[2024-11-19] MEDS ORDERED: Acetaminophen 325 MG TABLET PO PRN (15:10)
[2024-11-19] MEDS ORDERED: QUEtiapine Fumarate 25 MG Tab PO PRN (16:20)
--- NOTE | 2024-11-19 16:45 | NUR ---
ASSESSED PATIENT, SHE IS AGITATED. DISCUSSED CASE WITH DR. GARCIA, HE REPORTS THAT SHE WOULD BE APPROPRIATE TO GO HOME WITH HOSPICE. CALLED DAUGHTER AND LEFT MESSAGE. CALLED AGAIN THIS EVENING AND SHE ANSWERED. WE DISCUSSED GOALS OF CARE AND DAUGHTER AGREES THAT HOSPICE WOULD BE THE BEST COURSE OF CARE FOR HER MOTHER. SHE IS AGREEABLE TO COMFORT CARE IN THE HOSPITAL.
[2024-11-19] MEDS ORDERED: Morphine Sulfate 20 MG/1ML 1 ML Oral Syringe SL PRN (16:55)
[2024-11-19] MEDS ORDERED: LORazepam 1 MG Tab PO PRN (16:55)
--- NOTE | 2024-11-19 19:30 | NUR ---
SHIFT SUMMARY MS ALLEN HAS NOT VERBALISED WORDS TODAY. SHE HAD EPISODES OF DISTRESS TODAY, RESTLESS BEHAVIOR, TRYING TO GET OUT OF BED, MOANING, SEEMING VERY DISTRESSED. FENTANYL IV SEEMED TO HELP EARLIER IN THE SHIFT, SEROQUIL PO DID NOT CALM HER. AFTER SHE WAS CONVERTED TO COMFORT CARE THIS AFTERNOON 5MG ROXINOL HELPED HER LOOK VERY COMFORTABLE AND NO LONGER DISTRESSED. SHE HAD POOR PO INTAKE EARLIER THIS SHIFT, RESULTING IN IVF UNTIL CONVERTING TO COMFORT CARE, THEN SHE WAS ABLE TO EAT SUPPER (FULLY ASSISTED) AND TOLERATED SOME THICKENED LIQUIDS. RESTING IN BED COMFORTABLE BY THE LATER PART OF THE SHIFT, BED LOW, BED ALARM ON, CALL LIGHT IN REACH.
[2024-11-19] MEDS ORDERED: Lisinopril 20 MG Tab PO SCH (21:00)
[2024-11-19] MEDS ORDERED: Miconazole Nitrate 2% 85 GM PWD TOP SCH (21:00)
[2024-11-19] MEDS ORDERED: Brimonidine Tartrate 0.2% Opth 5 ml BOTHEYES SCH (21:00)
[2024-11-19] MEDS ORDERED: QUEtiapine Fumarate 25 MG Tab PO SCH (21:00)
[2024-11-19 21:47] VITALS: BP 136/60
--- NOTE | 2024-11-20 00:13 | NUR ---
RESTING QUIETLY WITH FEW INTERRUPTIONS. REPOSITIONED ABOUT Q 2 HRS PT ALLOWS. CALL LIGHT IN REACH
--- NOTE | 2024-11-20 03:13 | NUR ---
STAFF COUNSEL SUMMARY VSS. PLACED ON COMFORT CARE ON DAY SHIFT YESTEREDAY. HAS BEEN TOLERATING MEDSWITH APPLESAUCE, NECTAR THICK LIQUIDS. HOB ELEVATED TO PREVENT ASPIRATION. REPOSITIONED AND CHANGED FREQUENTLY THIS SHIFT, ABLE TO REPOSITION SELF IN BED HAS BEEN RESTING QUIETLY WITH FEW INTERRUPTIONS. CALL LIGHT IN REACH, RAILS UP X 2 AND BED IN LOW POSITION FOR SAFETY. NO NOTED S/S ACUTE DIATRESS, DISCOMFORT. WILL CONT TO MONITOR
[2024-11-20 05:19] VITALS: BP 175/83
[2024-11-20] MEDS ORDERED: Dorzolamide/Timolol Opth Soln 10 ML BOTHEYES SCH (09:00)
[2024-11-20] MEDS ORDERED: Zinc Oxide Ointment 30 GM TOP SCH (09:00)
[2024-11-20] MEDS ORDERED: Latanoprost 0.005% Opth Soln 2.5 ML BOTHEYES SCH (09:00)
[2024-11-20] MEDS ORDERED: Aspirin 81 MG Chew PO SCH (09:00)
[2024-11-20] MEDS ORDERED: Atorvastatin 40 MG Tab PO SCH (09:00)
[2024-11-20] MEDS ORDERED: Sertraline HCl 50 MG Tab PO SCH (09:00)
[2024-11-20] MEDS ORDERED: MORP20L SL (13:58)
[2024-11-20] MEDS ORDERED: ONDA4 PO (13:58)
[2024-11-20] MEDS ORDERED: Ativan1 MG PO (13:58)
--- NOTE | 2024-11-20 14:57 | NUR ---
MET WITH DAUGHTER CAROLINE AND DISCUSSED POLST FORM. PROVIDED THERAPUTIC LISTENING. CAROLINE WAS OUT OF TOWN WHEN [facility] CAME INTO THE HOSPITAL. COORDINATED WITH PROVIDER AND CASE MANAGMENT. DISCUSSED CASE WITH BEDSIDE RN.
--- NOTE | 2024-11-20 16:11 | NUR ---
DISCHARGE NOTE- PT IS GOING TO BE DC[facility]D BACK [facility]. PT WILL BE TRANSPORTED VIA [facility] AROUND 1630. ATTENDS CHANGED, PT IS STILL IN A CLEAN GOWN. PT WAS ABLE TO FOLLOW SOME INSTRUCTION. DAUGHTER WAS NOTIFIED THAT THE MEDS WERE FAXED TO [facility]. PT HAS A SMALL SCRATCH THAT WAS BLEEDING COVERED WITH A MEPITEL TO PROTECT, NO LONGER BLEEDING AT THIS TIME, ON THE RIGHT ARM BELOW THE COBAN, FROM WHERE THE PT PULLED OUT HER IV. PT HAS NO IV AND NO TELE AT THIS TIME. AWAITING THE ARRIVAL OF TRANSPORT.
== END 2024-11-20 17:02 | disposition hospice, home (50) | DRG 71 ==
LOC: ER 08:58 → MEDS 14:22 → ENPENDDIS 11-20 13:05 → MEDS 11-20 17:02
PROVIDERS: Student in an Organized Health Care Education/Training Program; ADMIT Internal Medicine
DX: G93.40 Encephalopathy, unspecified (principal); F02.818 Dementia in other diseases classified elsewhere, unspecified severity, with other behavioral disturbance; I16.1 Hypertensive emergency; Z51.5 Encounter for palliative care; Z66 Do not resuscitate; R29.810 Facial weakness; G81.91 Hemiplegia, unspecified affecting right dominant side; R47.81 Slurred speech; I10 Essential (primary) hypertension; G30.9 Alzheimer's disease, unspecified; E03.9 Hypothyroidism, unspecified; E11.9 Type 2 diabetes mellitus without complications; E78.5 Hyperlipidemia, unspecified; F32.9 Major depressive disorder, single episode, unspecified; I87.2 Venous insufficiency (chronic) (peripheral); H54.8 Legal blindness, as defined in USA; H40.9 Unspecified glaucoma; Z88.8 Allergy status to other drugs, medicaments and biological substances; Z79.899 Other long term (current) drug therapy
CPT/HCPCS: 36415; 70450; 70496; 70498; 80053; 82140; 83605; 83735; 84439; 84443; 84484; 85025; 85610; 87428-QW; 92610; 93005; 93010; 99285-25; A9270; J0360; J1650; J3010; Q9967